=== PATIENT | female | born 1965 | race Caucasian/White ===

== ENCOUNTER → 2016-10-08 | Outpatient (CLI) | payer MEDICAID ==
[~2016-10-08] MED LIST: ABILIFY2 MG PO; ACIPHEX 20 MG T20 MG PO; AZITHROMYCIN250 M1 PO; BACLOFEN 10MG T10 MG PO; BACLOFEN20 MG PO; BUTRANS10 MCG/HR TD; CLONAZEPAM0.5 M1 PO; CORTISPORIN (GE10 M1 OT; DIVALPROEX DR500 MG PO; GABAPENTIN 400400 MG PO; GABAPENTIN 600600 MG PO; HYDROCODONE BIT1 T39 PO; KEFLEX 500MG.500 MG PO; LASIX40 MG PO; LEXAPRO 10 MG T10 MG PO; LEXAPRO20 M1 PO; LIPITOR20 MG PO; LORTAB 7.5/3251 TAB PO; LOVENOX 3030 MG/0.1 IJ; LOVENOX 4040 MG/0.1 IJ; METFORMIN1000 MG PO; NEURONTIN 100100 MG PO; NEURONTIN400 MG PO; NORTRIPTYL10 MG/5 ML PO; Oxycodone5 MG NG; PERIACTIN 4MG. T4 MG PO; PREDNISONE 20MG20 MG PO; PROPRANOLOL HCL40 MG PO; RANITIDINE HYD300 MG PO; VISTARIL50 MG PO; WARFARIN SOD5 MG PO; WELLBUTRIN XL300 MG PO; ZOPICLONE PO
[2016-10-08 08:18] LABS: BUN 14 mg/dL (7-18)
[2016-10-08 08:19] LABS: GFR (ESTIMATED) 52 ML/MIN (59-)
--- NOTE | 2016-10-09 10:43 | RADIOLOGY REPORT PS360 ---
CTA-CHEST HISTORY: Dyspnea, shortness of air, diaphoresis, chest pain CHEST PAIN,ANGINA, HX OF DVT,R/O PE ORDERING PHYSICIAN: JOSE RUIZ MD PATIENT AGE: 51 years TECHNIQUE: Helical acquisition obtained following the bolus administration of 60 mL of Isovue 370 followed by a saline bolus. Axial, sagittal, and coronal reformatted images are generated and reviewed. COMPARISON: 03/04/2011 FINDINGS: There is no evidence of pulmonary embolus or aortic aneurysm. No mediastinal or hilar mass evident. No coronary artery calcification detected. Normal heart size. No evidence of pericardial effusion 5 mm noncalcified nodule present in the right middle lobe unchanged. There is some minimal opacification in the right perihilar region longitudinal in nature. This is nonspecific and not significantly changed calcified granulomas are present in the superior segment of the left lower lobe. No lobar consolidation or collapse. No effusions. Upper abdominal images are unremarkable. No acute bony anomalies IMPRESSION: 1. No acute finding. No evidence of pulmonary embolus or aortic aneurysm. 2. No change 5 mm noncalcified nodule right middle lobe.
== END ==
LOC: LAB 07:48 → RAD 07:48
PROVIDERS: Internal Medicine Cardiovascular Disease
DX: Z86.718 Personal history of other venous thrombosis and embolism (principal); R55 Syncope and collapse; R06.09 Other forms of dyspnea; R06.00 Dyspnea, unspecified; R07.9 Chest pain, unspecified; I28.9 Disease of pulmonary vessels, unspecified
CPT/HCPCS: Q9967

== ENCOUNTER 2017-01-11 10:20 | Outpatient (CLI) | payer MEDICAID ==
[2017-01-11 13:51] LABS: AMPHETAMINES/METAMPHETAMINES NEGATIVE ng/mL (<1000)
[2017-01-19 18:40] LABS: Codeine Negative (Cutoff=100); Hydrocodone Positive (.); Hydromorphone Negative (Cutoff=100); Morphine Negative (Cutoff=100); Opiates Positive (.)
== END 2017-01-11 11:20 ==
LOC: LAB 10:20 → ACC 10:20
PROVIDERS: Anesthesiology
DX: I48.91 Unspecified atrial fibrillation (principal); Z79.01 Long term (current) use of anticoagulants; Z51.81 Encounter for therapeutic drug level monitoring; Z79.899 Other long term (current) drug therapy
CPT/HCPCS: G0463